=== PATIENT | female | born 1995 | race Two or more races ===

== ENCOUNTER 2018-03-14 18:41 | Emergency (ER) | payer MEDICAID ==
[2018-03-14] MEDS: DEXAMETHASONE 10 MG/ML 1 ML INJ IM (21:08)
[2018-03-14] MEDS: DIPHENHYDRAMINE 25 MG CAP PO (21:08)
[2018-03-14] MEDS: ALBUTEROL 0.083% (NEB) 2.5 MG/3 ML AMP HHN (21:14)
[2018-03-14] MEDS: IPRATROPIUM (NEB) 0.5 MG/2.5 ML AMP HHN (21:14)
== END 2018-03-14 21:46 | disposition home or self-care (01) ==
LOC: FTE 18:41
DX: R06.02 Shortness of breath (principal)
CPT/HCPCS: 94664; 96372; 99284-25

== ENCOUNTER 2018-04-25 18:47 | Emergency (ER) | payer MEDICAID ==
[2018-04-25] MEDS: EPINEPHrine 1 MG INJ IM (19:20)
[2018-04-25] MEDS: DIPHENHYDRAMINE 50 MG INJ IV (19:20)
[2018-04-25] MEDS: FAMOTIDINE 20 MG INJ IV (19:21)
[2018-04-25] MEDS: METHYLPREDNISOLONE 125 MG INJ IV (19:21)
[2018-04-25] MEDS: ALBUTEROL 0.5% (NEB) 2.5 MG/0.5 ML AMP NEB (23:31)
== END 2018-04-26 01:51 | disposition home or self-care (01) ==
LOC: E/R 04-26 01:51
DX: T78.2XXA Anaphylactic shock, unspecified, initial encounter (principal); J98.01 Acute bronchospasm
CPT/HCPCS: 94644; 96372; 96374; 96375; 99291-25